=== PATIENT | male | born 1990 | race African-American/Black ===

== ENCOUNTER 2020-02-18 17:19 | Inpatient (IN) | payer MEDICAID ==
[2020-02-18 21:21] VITALS: BP 128/68
[2020-02-18] MEDS ORDERED: LOPERAMIDE HCL 2 MG CAPSULE PO PRN (22:45)
[2020-02-18] MEDS ORDERED: OLANZapine 5 MG RAPDIS TABLET PO PRN (22:45)
[2020-02-18] MEDS ORDERED: ACETAMINOPHEN 325 MG TABLET PO PRN (22:45)
[2020-02-18] MEDS ORDERED: GuaiFENesin/D-METHORPHAN [SUGAR-FREE] 200-20MG/10 ML SYRUP UDCUP PO PRN (22:45)
[2020-02-18] MEDS ORDERED: INFLUENZA VIRUS VACCINE QVS 2020-21 (6MO+)/PF 60 MCG/0.5 ML SYRINGE IM ONE (22:45)
[2020-02-18] MEDS ORDERED: TUBERCULIN, PURIFIED PROTEIN DERIVATIVE 5 TU/0.1 ML SYRINGE ID ONE (22:45)
[2020-02-18] MEDS ORDERED: PNEUMOCOCCAL VACCINE POLYVALENT 0.5 ML VIAL [PPSV23] IM ONE (22:45)
[2020-02-18] MEDS ORDERED: MAGNESIUM HYDROXIDE SUSPENSION 30 ML UDCUP PO PRN (22:45)
[2020-02-18] MEDS ORDERED: HydrOXYzine PAMOATE 50 MG CAPSULE PO PRN (22:45)
[2020-02-18] MEDS ORDERED: LORazepam 2 MG TABLET PO PRN (22:45)
[2020-02-18] MEDS ORDERED: MAG HYDROX/AL HYDROX/SIMETH ES 30 ML SUSPENSION UDCUP PO PRN (22:45)
[2020-02-18] MEDS ORDERED: ZOLPIDEM TARTRATE 10 MG TABLET PO PRN (22:45)
[2020-02-19 01:21] VITALS: BP 124/62
[2020-02-19] MEDS: MULTIVITAMINS WITH MINERALS, THERAPEUTIC TABLET PO SCH (09:00)
[2020-02-19] MEDS: NALTREXONE HCL 50 MG TABLET PO SCH (09:00)
[2020-02-19] MEDS: THIAMINE 100 MG TABLET PO SCH ×2 (09:00→17:00)
[2020-02-19] MEDS: OMEGA-3/DHA/EPA/FISH OIL 1,000 MG CAPSULE PO SCH (09:00)
[2020-02-19] MEDS: FOLIC ACID 1 MG TABLET PO SCH (09:00)
[2020-02-19 18:55] VITALS: BP 131/76
[2020-02-19] MEDS: OLANZapine 5 MG RAPDIS TABLET PO SCH (20:43)
[2020-02-19] MEDS: MELATONIN 5 MG TABLET PO SCH (20:43)
[2020-02-20 08:18] VITALS: BP 120/67
[2020-02-20] MEDS: FOLIC ACID 1 MG TABLET PO SCH (09:00)
[2020-02-20] MEDS: MULTIVITAMINS WITH MINERALS, THERAPEUTIC TABLET PO SCH (09:00)
[2020-02-20] MEDS: OMEGA-3/DHA/EPA/FISH OIL 1,000 MG CAPSULE PO SCH (09:00)
[2020-02-20] MEDS: THIAMINE 100 MG TABLET PO SCH ×2 (09:00→17:00)
[2020-02-20] MEDS: NALTREXONE HCL 50 MG TABLET PO SCH (09:00)
[2020-02-20] MEDS: OLANZapine 5 MG RAPDIS TABLET PO SCH (20:27)
[2020-02-20] MEDS: MELATONIN 5 MG TABLET PO SCH (20:27)
[2020-02-21] MEDS: THIAMINE 100 MG TABLET PO SCH ×2 (09:00→16:31)
[2020-02-21] MEDS: OMEGA-3/DHA/EPA/FISH OIL 1,000 MG CAPSULE PO SCH (09:00)
[2020-02-21] MEDS: NALTREXONE HCL 50 MG TABLET PO SCH (09:00)
[2020-02-21] MEDS: MULTIVITAMINS WITH MINERALS, THERAPEUTIC TABLET PO SCH (09:00)
[2020-02-21] MEDS: FOLIC ACID 1 MG TABLET PO SCH (09:00)
[2020-02-21] MEDS: OLANZapine 5 MG RAPDIS TABLET PO SCH (20:37)
[2020-02-21] MEDS: MELATONIN 5 MG TABLET PO SCH (20:37)
[2020-02-22 06:24] VITALS: BP 107/83
[2020-02-22 08:26] VITALS: BP 101/60
[2020-02-22] MEDS: FOLIC ACID 1 MG TABLET PO SCH (09:00)
[2020-02-22] MEDS: MULTIVITAMINS WITH MINERALS, THERAPEUTIC TABLET PO SCH (09:00)
[2020-02-22] MEDS: OMEGA-3/DHA/EPA/FISH OIL 1,000 MG CAPSULE PO SCH (09:00)
[2020-02-22] MEDS: THIAMINE 100 MG TABLET PO SCH ×2 (09:00→16:57)
[2020-02-22] MEDS: NALTREXONE HCL 50 MG TABLET PO SCH (09:00)
[2020-02-22] MEDS: OLANZapine 5 MG RAPDIS TABLET PO SCH (21:00)
[2020-02-22] MEDS: MELATONIN 5 MG TABLET PO SCH (21:00)
[2020-02-23 01:34] VITALS: BP 106/71
[2020-02-23 08:09] VITALS: BP 127/67
[2020-02-23] MEDS: NALTREXONE HCL 50 MG TABLET PO SCH ×2 (09:00→09:14)
[2020-02-23] MEDS: MULTIVITAMINS WITH MINERALS, THERAPEUTIC TABLET PO SCH ×2 (09:00→09:14)
[2020-02-23] MEDS: OMEGA-3/DHA/EPA/FISH OIL 1,000 MG CAPSULE PO SCH ×2 (09:00→09:14)
[2020-02-23] MEDS: FOLIC ACID 1 MG TABLET PO SCH ×2 (09:00→09:14)
[2020-02-23] MEDS: THIAMINE 100 MG TABLET PO SCH ×2 (09:14→16:56)
[2020-02-23 16:11] VITALS: BP 109/57
[2020-02-23] MEDS: MELATONIN 5 MG TABLET PO SCH (20:26)
[2020-02-23] MEDS: OLANZapine 5 MG RAPDIS TABLET PO SCH (20:26)
[2020-02-24 06:02] VITALS: BP 119/62
[2020-02-24 08:06] VITALS: BP 124/69
[2020-02-24] MEDS: THIAMINE 100 MG TABLET PO SCH ×2 (09:27→16:20)
[2020-02-24 17:27] VITALS: BP 115/65
[2020-02-24] MEDS: MELATONIN 5 MG TABLET PO SCH (20:55)
[2020-02-24] MEDS: OLANZapine 5 MG RAPDIS TABLET PO SCH (20:55)
[2020-02-25 01:48] VITALS: BP 124/68
[2020-02-25 08:09] VITALS: BP 116/62
[2020-02-25] MEDS: NALTREXONE HCL 50 MG TABLET PO SCH (08:58)
[2020-02-25] MEDS: OMEGA-3/DHA/EPA/FISH OIL 1,000 MG CAPSULE PO SCH (08:58)
[2020-02-25] MEDS: FOLIC ACID 1 MG TABLET PO SCH (08:58)
[2020-02-25] MEDS: THIAMINE 100 MG TABLET PO SCH ×3 (08:58→17:34)
[2020-02-25] MEDS: MULTIVITAMINS WITH MINERALS, THERAPEUTIC TABLET PO SCH (08:58)
[2020-02-25 09:09] LABS: HEMATOCRIT 46.2 % (41-53); HEMOGLOBIN 15.5 g/dL (13.5-17.5); MEAN CORPUSCULAR HEMOGLOBIN 30.4 pg (26.0-34.0); MEAN CORPUSCULAR HGB CONC 33.5 G/dL (31.0-37.0); MEAN CORPUSCULAR VOLUME 91 fL (80-100); PLATELET COUNT (AUTO) 279 K/uL (150-450); RED BLOOD CELL COUNT(AUTO) 5.08 MIL/uL (4.50-5.90); RED CELL DISTRIBUTION WIDTH 13.7 % (11.5-14.5)
[2020-02-25 09:32] LABS: HEMOGLOBIN A1C 5.3 % (3.8-5.6)
[2020-02-25 10:02] LABS: BAND NEUTROPHILS % (MANUAL) 2 % (0-5); EOSINOPHILS % (MANUAL) 3 % (1-6); LYMPHOCYTES % (MANUAL) 25 % (22-44); MONOCYTES % (MANUAL) 6 % (2-9); SEGMENTED NEUTROPHILS % 64 % (40-70)
[2020-02-25 10:35] LABS: ALANINE AMINOTRANSFERASE 48 U/L (12-78); ALBUMIN 4.2 g/dL (3.4-5.0); ALKALINE PHOSPHATASE 76 U/L (46-116); ANION GAP 9 mmol/L (8-16); ASPARTATE AMINOTRANSFERASE 25 U/L (15-37); BILIRUBIN,TOTAL 0.3 mg/dL (0.1-1.0); CALCIUM, TOTAL 9.3 mg/dL (8.8-10.5); CARBON DIOXIDE 28 mmol/L (22-29); CHLORIDE 102 mmol/L (98-107); CHOLESTEROL 151 mg/dL (131-200); FREE T4 (FREE THYROXINE) 0.93 ng/dL (0.76-1.46); GLOMERULAR FILTR. RATE CALC > 60 mL/min (>60); GLUCOSE,RANDOM 117 mg/dL (70-110); HDL CHOLESTEROL 38 mg/dL (40-60); LDL CHOL (CALC.) 93 mg/dL (0-130); POTASSIUM 4.9 mmol/L (3.5-5.1); SODIUM SERUM 139 mmol/L (136-145); THYROID STIMULATING HORMONE 0.72 uIU/mL (0.36-3.74); TOTAL PROTEIN, SERUM 8.5 g/dL (6.4-8.2); TRIGLYCERIDES 100 mg/dL (15-150); UREA NITROGEN, BLOOD 21 mg/dL (7-18)
[2020-02-25] MEDS: OLANZapine 5 MG RAPDIS TABLET PO SCH (20:33)
[2020-02-25] MEDS: MELATONIN 5 MG TABLET PO SCH (20:34)
[2020-02-26 08:09] VITALS: BP 113/66
[2020-02-26] MEDS: FOLIC ACID 1 MG TABLET PO SCH (09:00)
[2020-02-26] MEDS: OMEGA-3/DHA/EPA/FISH OIL 1,000 MG CAPSULE PO SCH (09:00)
[2020-02-26] MEDS: THIAMINE 100 MG TABLET PO SCH ×2 (09:00→17:00)
[2020-02-26] MEDS: NALTREXONE HCL 50 MG TABLET PO SCH (09:00)
[2020-02-26] MEDS: MULTIVITAMINS WITH MINERALS, THERAPEUTIC TABLET PO SCH (09:00)
[2020-02-26] MEDS: OLANZapine 5 MG RAPDIS TABLET PO SCH (20:53)
[2020-02-26] MEDS: MELATONIN 5 MG TABLET PO SCH (20:53)
[2020-02-27] MEDS: FOLIC ACID 1 MG TABLET PO SCH (09:00)
[2020-02-27] MEDS: OMEGA-3/DHA/EPA/FISH OIL 1,000 MG CAPSULE PO SCH (09:00)
[2020-02-27] MEDS: NALTREXONE HCL 50 MG TABLET PO SCH (09:00)
[2020-02-27] MEDS: MULTIVITAMINS WITH MINERALS, THERAPEUTIC TABLET PO SCH (09:00)
[2020-02-27] MEDS: THIAMINE 100 MG TABLET PO SCH ×2 (09:00→16:51)
[2020-02-27] MEDS: OLANZapine 5 MG RAPDIS TABLET PO SCH ×2 (17:00→20:56)
[2020-02-27] MEDS: HALOPERIDOL LACTATE 5 MG/ML VIAL IM PRN (18:27)
[2020-02-27] MEDS: MELATONIN 5 MG TABLET PO SCH (20:56)
[2020-02-28] MEDS: OMEGA-3/DHA/EPA/FISH OIL 1,000 MG CAPSULE PO SCH (09:00)
[2020-02-28] MEDS: MULTIVITAMINS WITH MINERALS, THERAPEUTIC TABLET PO SCH (09:00)
[2020-02-28] MEDS: THIAMINE 100 MG TABLET PO SCH ×2 (09:00→16:49)
[2020-02-28] MEDS: FOLIC ACID 1 MG TABLET PO SCH (09:00)
[2020-02-28] MEDS: OLANZapine 5 MG RAPDIS TABLET PO SCH ×5 (09:00→20:42)
[2020-02-28] MEDS: NALTREXONE HCL 50 MG TABLET PO SCH (09:00)
[2020-02-28] MEDS: HALOPERIDOL LACTATE 5 MG/ML VIAL IM PRN ×2 (09:56→13:43)
[2020-02-28 16:19] VITALS: BP 121/60
[2020-02-28] MEDS: MELATONIN 5 MG TABLET PO SCH (20:42)
[2020-02-29 02:35] VITALS: BP 126/87
[2020-02-29] MEDS: OMEGA-3/DHA/EPA/FISH OIL 1,000 MG CAPSULE PO SCH (09:10)
[2020-02-29] MEDS: NALTREXONE HCL 50 MG TABLET PO SCH (09:10)
[2020-02-29] MEDS: MULTIVITAMINS WITH MINERALS, THERAPEUTIC TABLET PO SCH (09:10)
[2020-02-29] MEDS: OLANZapine 5 MG RAPDIS TABLET PO SCH ×2 (09:10→12:56)
[2020-02-29] MEDS ORDERED: NALT50TA PO (13:11)
[2020-02-29] MEDS ORDERED: MELA5TAB3 PO (13:11)
[2020-02-29] MEDS ORDERED: OLAN5TAB30 PO (13:11)
[2020-02-29] MEDS ORDERED: OMEG-135 PO (13:11)
== END 2020-02-29 15:45 | disposition home or self-care (01) | DRG 750 ==
LOC: B3A 21:23
PROVIDERS: ADMIT Psychiatry & Neurology Psychiatry; ATTEND Psychiatry & Neurology Psychiatry
DX: F25.1 Schizoaffective disorder, depressive type (principal); J45.909 Unspecified asthma, uncomplicated; Z59.0 Homelessness; Z87.891 Personal history of nicotine dependence; Z91.14 Patient's other noncompliance with medication regimen; Z88.8 Allergy status to other drugs, medicaments and biological substances; Z55.9 Problems related to education and literacy, unspecified; Z65.3 Problems related to other legal circumstances
CPT/HCPCS: 83036; 84439; 84443; 85007; 86592; 90686; A9575; J1630